=== PATIENT | male | born 1995 | race Caucasian/White ===

== ENCOUNTER 2017-02-26 17:47 | Emergency (ER) | payer MEDICAID ==
[2017-02-26 18:18] VITALS: BP 144/81
[2017-02-26] MEDS ORDERED: Metoclopramide 10 MG/2 ML SDV IVPUSH ONE (18:22)
[2017-02-26] MEDS ORDERED: HYDROmorphone 1 MG/ML Syringe IVPUSH ONE (18:22)
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
[2017-02-26] MEDS ORDERED: Dextrose 5%-0.9% NaCl 1,000 ML IV SCH (18:30)
--- NOTE | 2017-02-28 11:33 | CR ---
Right clavicle: Two views of the right clavicle were obtained. No fracture or other abnormality is identified. Impression: 1. No abnormality is identified on two-view right clavicle study. Diagnostic code #1
--- NOTE | 2017-02-28 11:33 | CR ---
Chest: Frontal view of the chest was obtained. Comparison: No previous study. Heart size and mediastinum are within normal limits. Mild scoliosis is present within the spine. Nothing acute appreciated within the visualized osseous structures. Lungs are clear. No pneumothorax is seen. Impression: 1. Mild scoliosis. Nothing acute is appreciated on frontal chest x-ray. Diagnostic code #2
--- NOTE | 2017-02-28 11:33 | CR ---
Left knee: AP, lateral and sunrise patellar views of the left knee were obtained. Medial and lateral joint spaces are maintained in height. Patellofemoral joint appears within normal limits. No joint effusion is seen. Small fibrous cortical defect is noted within the distal femur. No acute fracture or other bony abnormality is identified. Impression: 1. Small fibrous cortical defect as an incidental note. 2. Nothing is identified on left knee exam. Diagnostic code #2
--- NOTE | 2017-02-28 11:36 | CT ---
Head CT Technique: Multiple axial sections through the brain were obtained. Intravenous contrast was not utilized. Findings: Ventricles along with basal cisterns and sulci over the convexities are within normal limits. No abnormal parenchymal densities are seen. No evidence of intracranial hemorrhage. No midline shift or mass effect is seen. Visualized sinuses are clear. No acute calvarial abnormality is appreciated. Impression: 1. No acute intracranial abnormality is identified. Diagnostic code #1 Agree with preliminary report issued by [facility] ([facility] preliminary report dictated on 02/26/17, 8:14 PM Central Time)
== END 2017-02-26 20:17 | disposition home or self-care (01) ==
LOC: JD.ED 17:47
DX: S06.0X0A Concussion without loss of consciousness, initial encounter (principal); S43.101A Unspecified dislocation of right acromioclavicular joint, initial encounter; S83.412A Sprain of medial collateral ligament of left knee, initial encounter; V86.59XA Driver of other special all-terrain or other off-road motor vehicle injured in nontraffic accident, initial encounter
CPT/HCPCS: 70450; 71010; 73000; 73562; 96374; 96375; 99284; J1170; J2765; J7042

== ENCOUNTER 2017-04-19 07:51 | Day surgery (SDC) | payer MEDICAID ==
[~2017-04-19 07:51] MED LIST: Lidocaine 1%/Sod Bicarbonate in NS 8.4% 1 ML Syringe IV PRN; Sodium Chloride 0.9% 10 ML Syringe FLUSH PRN
[2017-04-19] MEDS: Lactated Ringers 1,000 ML IV SCH ×2 (08:10→13:04)
--- NOTE | 2017-04-19 08:26 | PCM.PREANE ---
Preanesthetic Assessment - Anesthesia/Transfusion/Family Hx Anesthesia History: Prior Anesthesia Without Reaction Family History of Anesthesia Reaction: No Transfusion History: No Prior Transfusion(s) Intubation History: Unknown - Review of Systems General: No Symptoms Pulmonary: No Symptoms (smokes 2-3 cigarettes/day times 2 years.) Cardiovascular: No Symptoms Gastrointestinal: No Symptoms Neurological: No Symptoms, Headache Other: Reports: None - Physical Assessment NPO Status Date: 04/18/17 NPO Status Time: 21:00 Pulse: 71 O2 Sat by Pulse Oximetry: 100 Respiratory Rate: 16 Blood Pressure: 114/74 Temperature: 36.7 C Height: 1.73 m Weight: 78.018 kg ASA Class: 2 Mental Status: Alert & Oriented x3 Airway Class: Mallampati = 2 Dentition: Reports: Normal Dentition, Caries Thyro-Mental Finger Breadths: 3 Mouth Opening Finger Breadths: 3 ROM/Head Extension: Full Lungs: Clear to Auscultation, Normal Respiratory Effort Cardiovascular: Regular Rate, Regular Rhythm, No Murmurs - Allergies Allergies/Adverse Reactions: Allergies Allergy/AdvReac Type Severity Reaction Status Date / Time No Known Allergies Allergy Verified 04/18/17 15:52 - Anesthesia Plan Pre-Op Medication Ordered: None - Acknowledgements Anesthesia Type Planned: General Anesthesia Pt an Appropriate Candidate for the Planned Anesthesia: Yes Alternatives and Risks of Anesthesia Discussed w Pt/Guardian: Yes Pt/Guardian Understands and Agrees with Anesthesia Plan: Yes PreAnesthesia Questionnaire - Past Health History Medical/Surgical History: Denies Medical/Surgical History - Past Surgical History Respiratory Surgical History: Reports: Other (See Below) Other Respiratory Surgeries/Procedures: tonsillectomy - SUBSTANCE USE Smoking Status *Q: Current Every Day Smoker Tobacco Use Within Last Twelve Months: Snuff/Dip Recreational Drug Use History: No - CURRENT (IN HOUSE) MEDS Current Meds: Current Medications Lactated Ringer's (Ringers, Lactated) 1,000 mls @ 125 mls/hr IV ASDIRECTED JACQUIE Lidocaine/Sodium Bicarbonate (Buffered Lidocaine 1% In Ns 8.4%) 0.25 ml IV ONETIME PRN PRN Reason: Prior to IV Start Sodium Chloride (Saline Flush) 10 ml FLUSH ASDIRECTED PRN PRN Reason: Keep Vein Open
[2017-04-19] MEDS ORDERED: Propofol 200 MG/20 ML SDV ONE (09:17)
[2017-04-19] MEDS ORDERED: fentaNYL 250 MCG/5 ML SDV ONE (09:17)
[2017-04-19] MEDS ORDERED: Midazolam 1 MG/ML 2 ML SDV ONE (09:17)
[2017-04-19] MEDS ORDERED: Dexamethasone 4 MG/ML SDV ONE (09:18)
[2017-04-19] MEDS ORDERED: Lidocaine 1% 4 ML ONE (09:18)
[2017-04-19] MEDS ORDERED: Ondansetron 4 MG/2 ML SDV ONE (09:18)
[2017-04-19] MEDS ORDERED: EPINEPHrine 1 MG/ML 30 ML MDV ONE (09:39)
[2017-04-19] MEDS ORDERED: Sodium Chloride 0.9% 50 ML SDV ONE (09:39)
[2017-04-19] MEDS ORDERED: Lidocaine 1% with EPINEPHrine 1:100,000 20 ML MDV ONE (09:39)
[2017-04-19] MEDS ORDERED: Morphine 15 MG Tab.ER PO SCH (09:45)
[2017-04-19] MEDS ORDERED: Ondansetron 4 MG/2 ML SDV IVPUSH PRN ×2 (09:47→10:43)
[2017-04-19] MEDS ORDERED: Ketorolac 30 MG/ML SDV IVPUSH PRN (09:47)
[2017-04-19] MEDS ORDERED: Acetaminophen/oxyCODONE 325-5 MG Tab PO PRN (09:47)
[2017-04-19] MEDS ORDERED: ceFAZolin 1 GM Vial ONE (09:55)
[2017-04-19] MEDS ORDERED: fentaNYL 100 MCG/2 ML SDV IVPUSH PRN (10:43)
[2017-04-19] MEDS ORDERED: diphenhydrAMINE 50 MG/ML SDV IVPUSH PRN (10:43)
[2017-04-19] MEDS ORDERED: HYDROmorphone 0.5 MG/0.5 ML Syringe IVPUSH PRN (10:43)
[2017-04-19] MEDS ORDERED: Meperidine PF 50 MG/ML Syringe IVPUSH PRN (10:43)
[2017-04-19] MEDS ORDERED: HYDROmorphone 1 MG/ML Syringe ONE (10:56)
[2017-04-19] MEDS ORDERED: Lactated Ringers 1,000 ML ONE (11:29)
--- NOTE | 2017-04-19 12:18 | PCM.POSTAN ---
POST ANESTHESIA ASSESSMENT - MENTAL STATUS Mental Status: Alert, Oriented - VITAL SIGNS Pulse Rate: 98 SaO2: 98 Resp Rate: 5 Blood Pressure: 135/79 Temperature: 37.2 C - RESPIRATORY Respiratory Status: Respiratory Rate WNL, Airway Patent, O2 Saturation Stable, Supplemental Oxygen - CARDIOVASCULAR CV Status: Pulse Rate WNL, Blood Pressure Stable - GASTROINTESTINAL GI Status: No Symptoms - PAIN Pain Score: 0 - POST OP HYDRATION Hydration Status: Adequate & Stable
[2017-04-19 14:23] VITALS: BP 113/69
--- NOTE | 2017-04-20 07:38 | OR ---
DATE OF OPERATION: 04/19/2017 SURGEON: Kiran Flannery MD PREOPERATIVE DIAGNOSIS: Internal derangement, left knee. POSTOPERATIVE DIAGNOSIS: 1. Complex tear medial meniscus, left knee. 2. Fibrous adhesions and synovitis, left knee joint. ANESTHESIA: General. OPERATION PERFORMED: 1. Left knee arthroscopic debridement. 2. Left knee arthroscopic partial medial meniscectomy. DESCRIPTION OF PROCEDURE: The patient was taken to the operating room in a supine position and was placed under general anesthesia. The left leg was prepped and draped by standard technique after adequate anesthesia and after prepping and draping, the operation began with 2 portal incisions being used, medial and lateral. The first evaluation of the medial compartment found the medial meniscus with a single strand of meniscus caught between the cruciate ligament and the medial femoral condyle. This was an extruded-type fragment, but attached to the posterior horn. This was flipped back into the joint area. There was also fragmentation and splitting of the central third to the anterior horn of the meniscus. This area was trimmed out with the portions of the torn medial meniscus removed all the way back to the posterior horn area. Once that was completed, the nerve hook was then used to probe the medial meniscus from the posterior horn anteriorly. There was a thin superior edge on the meniscus coming all the way to the anterior portion of the joint. The inferior substance was the major portion that was torn. There also was lamination of the meniscus in the central third area. But by probing, it was found to be stable and secure. The condylar surfaces showed some wear as a result of the torn cartilage, but otherwise intact. In the intercondylar notch area, there were a significant synovial reaction and synovitis. The cruciate ligament was intact. There was very a reddened medial ligamentum mucosum of the knee which was then excised. The lateral compartment was evaluated. The lateral meniscus was found to be intact and the posterior horn anteriorly. Swinging the arthroscope in the suprapatellar area, the patella was central, no chondromalacia noted, and no fragmentation could be seen. There was generalized synovitis within the suprapatellar pouch region. Once the surgery was completed, the final inspection of the medial compartment and probing found the meniscus to remain stable. There was no loose fragment noted. The operation then proceeded with thorough irrigation of the joint area. The skin was closed with 3-0 Prolene. The patient was placed in a Beltran dressing. He tolerated the procedure well and left the operating room in stable condition to his room for recovery. ESTIMATED BLOOD LOSS: MMODAL /[id number]
== END 2017-04-19 14:40 | disposition home or self-care (01) ==
LOC: JD.SDS 07:51
PROVIDERS: ATTEND Specialist
DX: S83.232A Complex tear of medial meniscus, current injury, left knee, initial encounter (principal); M65.88 Other synovitis and tenosynovitis, other site; S43.101A Unspecified dislocation of right acromioclavicular joint, initial encounter; F17.210 Nicotine dependence, cigarettes, uncomplicated; V86.96XA Unspecified occupant of dirt bike or motor/cross bike injured in nontraffic accident, initial encounter; Z90.89 Acquired absence of other organs
CPT/HCPCS: 29881; 82945; 84157; 89050; 89060; A9270; J0171; J0690; J1100; J1170; J1885; J2250; J2405; J3010; J7120; 01400; J2704